=== PATIENT | male | born 1980 | race American Indian/Alaskan Native ===

== ENCOUNTER 2017-03-11 01:00 | Emergency (ER) | payer MEDICARE ==
[2017-03-11 01:11] VITALS: BP 138/87
[2017-03-11 01:35] LABS: Basophils % (Auto) 0.3 % (0.0-1.8); Hematocrit 42.3 % (35.5-45.6); Hemoglobin 13.8 gm/dl (11.8-15.2); Mean Corpuscular HGB Conc 33 % (32-34); Mean Corpuscular Hemoglobin 30 pg (28-32); Mean Corpuscular Volume 93 fl (84-94); Platelet Count 161 K/mm3 (140-440); Red Blood Count 4.56 M/mm3 (3.65-5.03); Red Cell Distribution Width 15.2 % (13.2-15.2); White Blood Count 10.5 K/mm3 (4.5-11.0)
[2017-03-11 01:55] LABS: Anion Gap 18 mmol/L; Blood Urea Nitrogen 12 mg/dL (9-20); Calcium 9.2 mg/dL (8.4-10.2); Carbon Dioxide 25 mmol/L (22-30); Glucose 98 mg/dL (75-100); Potassium 3.8 mmol/L (3.6-5.0); Sodium 140 mmol/L (137-145)
[2017-03-11] MEDS ORDERED: TYLENOL ONE (04:13)
== END 2017-03-11 07:00 | disposition home or self-care (01) ==
LOC: ED 01:00
DX: L02.32 Furuncle of buttock (principal)
CPT/HCPCS: 36415; 80048; 85025; 99283